=== PATIENT | female | born 2000 | race Two or more races ===

== ENCOUNTER 2020-08-11 02:05 | Emergency (ER) | payer MEDICAID ==
[~2020-08-11] VITALS: Ht 165.1 cm; Wt 61.0 kg
[2020-08-11] MEDS ORDERED: KETOROLAC 30MG/ML VIAL IM ONE (03:30)
[2020-08-11] MEDS ORDERED: VISCOUS LIDOCAINE 2% 15 ML UDC MM STA (03:55)
[2020-08-11 04:50] VITALS: BP 122/74
== END 2020-08-11 04:51 | disposition home or self-care (01) ==
LOC: ER 02:05
DX: J03.90 Acute tonsillitis, unspecified (principal)
CPT/HCPCS: 81025; 87070; 87430; 96372; 99283; J1885